=== PATIENT | female | born 1955 | race Two or more races ===

== ENCOUNTER 2016-12-02 15:25 | Emergency (ER) | payer MEDICAID ==
[~2016-12-02] VITALS: Ht 167.6 cm; Wt 130.2 kg
--- NOTE | 2016-12-02 15:30 | NUR ---
AAOX3, BIB DAUGHTER C/O R SIDE FACIAL TWITCHING AND NUMBNESS, ALSO C/O HEADACHE X 1 HR [employer]. SKIN IS WARM AND DRY. NO FACIAL DROOPING. SPEAKS CLEARLY. DENIES ANY WEAKNESS. RESP IS DRY AND UNLABORED. AWAITING MD FOR EVAL.
--- NOTE | 2016-12-02 15:43 | NUR ---
DR TY VERBALLY ORDERED TETRACAINE
[2016-12-02] MEDS ORDERED: TETRACAINE HCL/PF 0.5% UD 2 ML BOTTLE ONE (15:44)
[2016-12-02] MEDS ORDERED: ACETAMINOPHEN ES 500 MG TABLET ONE (15:52)
[2016-12-02 15:53] LABS: BASOPHILS % (AUTO) 0.5 % (0.0-2.0); EOSINOPHILS # (AUTO) 0.1 /CMM (0.0-0.7); EOSINOPHILS % (AUTO) 0.8 % (0.0-6.0); HEMATOCRIT 37 % (33-45); HEMOGLOBIN 12.5 g/dL (11.5-14.8); LYMPHOCYTES % (AUTO) 15.3 % (20.0-44.0); MEAN CORPUSCULAR HEMOGLOBIN 30 PG (26.0-33.0); MEAN CORPUSCULAR HGB CONC 34 g/dl (31.0-36.0); MEAN CORPUSCULAR VOLUME 90 fL (82-100); MONOCYTES # (AUTO) 0.3 /CMM (0.1-1.30); MONOCYTES % (AUTO) 3.8 % (2.0-12.0); NEUTROPHILS # (AUTO) 5.5 /CMM (1.8-8.9); NEUTROPHILS % (AUTO) 79.6 % (43.0-81.0); PLATELET COUNT (AUTO) 205 /CMM (150-450); RDW COEFFICIENT OF VARIATION 13.2 (11.5-15.0); RED BLOOD CELL COUNT(AUTO) 4.12 MIL/uL (4.0-5.2); WHITE BLOOD COUNT (AUTO) 6.9 K/uL (4.3-11.0)
--- NOTE | 2016-12-02 15:56 | NUR ---
PT MEDICATED ORDERED.
[2016-12-02] MEDS ORDERED: ACETAMINOPHEN ES 500 MG TABLET PO ONE (16:00)
--- NOTE | 2016-12-02 16:00 | NUR ---
PT TAKEN TO CT.
[2016-12-02 16:03] LABS: CALCIUM, SERUM 8.4 mg/dL (8.5-10.1); CREATININE 0.7 mg/dL (0.6-1.3); POTASSIUM 3.9 mmol/L (3.5-5.1)
[2016-12-02 16:23] VITALS: BP 141/85
[2016-12-02] MEDS ORDERED: LINA5TAB PO (16:23)
[2016-12-02] MEDS ORDERED: METF500T4 PO (16:23)
[2016-12-02] MEDS ORDERED: PIOG30TA2 PO (16:23)
[2016-12-02] MEDS ORDERED: LISI-607 PO (16:23)
[2016-12-02] MEDS ORDERED: ATOR10TA PO (16:23)
--- NOTE | 2016-12-02 16:55 | NUR ---
Patient discharged to home in stable condition. Written and verbal after care instructions given. Patient verbalizes understanding of instruction.
== END 2016-12-02 16:55 | disposition home or self-care (01) ==
LOC: ER 15:27
DX: R51 Headache (principal); E11.9 Type 2 diabetes mellitus without complications; E66.01 Morbid (severe) obesity due to excess calories; I10 Essential (primary) hypertension; E78.00 Pure hypercholesterolemia, unspecified
CPT/HCPCS: 36415; 70450; 80048; 85025; 93005; 99285; A4606; Z7610

== ENCOUNTER 2017-10-14 17:47 | Emergency (ER) | payer MEDICAID ==
[~2017-10-14] VITALS: Ht 162.6 cm; Wt 127.0 kg
[~2017-10-14 17:47] MED LIST: ATOR10TA PO; LINA5TAB PO; LISI-607 PO; METF500T6 PO; PIOG30TA10 PO
--- NOTE | 2017-10-14 17:47 | NUR ---
LEFT SIDE BODY WEAKNESS, LEFT ARM NUMBNESS SINCE 1200AM. NAD NOTED. PT AAO X4, AMB WITH STEADY GAIT. RR EVEN AND UNLABORED. PENDING MD TAYLOR.
[2017-10-14 18:36] LABS: BASOPHILS % (AUTO) 0.3 % (0.0-2.0); EOSINOPHILS % (AUTO) 0.9 % (0.0-6.0); HEMATOCRIT 39 % (33-45); HEMOGLOBIN 13.1 g/dL (11.5-14.8); LYMPHOCYTES # (AUTO) 1.3 /CMM (0.8-4.8); LYMPHOCYTES % (AUTO) 18.6 % (20.0-44.0); MEAN CORPUSCULAR HEMOGLOBIN 30 PG (26.0-33.0); MEAN CORPUSCULAR HGB CONC 34 g/dl (31.0-36.0); MEAN CORPUSCULAR VOLUME 89 fL (82-100); MONOCYTES # (AUTO) 0.4 /CMM (0.1-1.30); MONOCYTES % (AUTO) 6.3 % (2.0-12.0); NEUTROPHILS # (AUTO) 5.1 /CMM (1.8-8.9); NEUTROPHILS % (AUTO) 73.9 % (43.0-81.0); PLATELET COUNT (AUTO) 208 /CMM (150-450); RDW COEFFICIENT OF VARIATION 13.6 (11.5-15.0); RED BLOOD CELL COUNT(AUTO) 4.34 MIL/uL (4.0-5.2); WHITE BLOOD COUNT (AUTO) 6.9 K/uL (4.3-11.0)
[2017-10-14 18:48] LABS: CREATININE 0.6 mg/dL (0.6-1.3); POTASSIUM 4.1 mmol/L (3.5-5.1)
[2017-10-14 18:50] LABS: INR 0.9 (0.85-1.15)
[2017-10-14 20:27] VITALS: BP 134/90
== END 2017-10-14 20:28 | disposition home or self-care (01) ==
LOC: ER 17:52
DX: R20.2 Paresthesia of skin (principal); R79.1 Abnormal coagulation profile; E78.5 Hyperlipidemia, unspecified; E11.9 Type 2 diabetes mellitus without complications; I10 Essential (primary) hypertension; E78.1 Pure hyperglyceridemia; E66.9 Obesity, unspecified
CPT/HCPCS: 36415; 70450-TC; 71045-TC; 80048-TC; 85025-TC; 85730-TC; A4606; Z7610